=== PATIENT | female | born 1945 | race Caucasian/White ===

== ENCOUNTER 2020-08-09 10:45 | Outpatient (CLI) | payer MEDICARE, OTHER ==
--- NOTE | 2020-08-09 14:27 | BD ---
DEXA BONE DENSITY STUDY: Date: 08/09/2020 HISTORY: 75-year-old postmenopausal female for screening. FINDINGS: Lumbar Spine: BMD (g/cm2) L1 0.845 T-Score: -1.3 L2 0.922 T-Score: -1.0 L3 0.843 T-Score: -1.3 L4 0.892 T-Score: -1.5 L1-L4 0.901 T-Score: -1.3 Left Femoral Neck: 0.684 T-Score: -1.5 Total Femur: 0.806 T-Score: -1.1 IMPRESSION: Osteopenia. This patient has a 10 year WHO fracture risk of a major osteoporotic fracture of 8.6% and for a hip fracture of 1.7%. POS: EAA
== END 2020-08-09 10:46 | disposition home or self-care (01) ==
LOC: BICMAMMO 10:45
PROVIDERS: ATTEND Family Medicine
DX: Z13.820 Encounter for screening for osteoporosis (principal); M85.89 Other specified disorders of bone density and structure, multiple sites
CPT/HCPCS: 77080

== ENCOUNTER 2024-10-22 08:00 | Outpatient (CLI) | payer OTHER | END 2024-10-22 08:01 | disposition home or self-care (01) | LOC: BICCT 08:00 | PROVIDERS: ATTEND Family Medicine | DX: Z13.6 Encounter for screening for cardiovascular disorders (principal); I70.0 Atherosclerosis of aorta | CPT/HCPCS: 75571 ==